=== PATIENT | male | born 1995 | race African-American/Black ===

== ENCOUNTER 2016-06-13 15:42 | Emergency (ER) | payer MEDICARE ==
[~2016-06-13] VITALS: Ht 175.3 cm; Wt 55.0 kg
[~2016-06-13 15:42] MED LIST: INSU3INS6 SUBCUT
[2016-06-13] MEDS ORDERED: BACITRACIN ZINC OINT UDPKT TOP ONE (19:45)
[2016-06-13 19:51] VITALS: BP 133/77
== END 2016-06-13 20:13 | disposition home or self-care (01) ==
LOC: ER 15:43
DX: S60.00XA Contusion of unspecified finger without damage to nail, initial encounter (principal); J45.909 Unspecified asthma, uncomplicated; E11.9 Type 2 diabetes mellitus without complications; F17.200 Nicotine dependence, unspecified, uncomplicated; Z79.4 Long term (current) use of insulin; Z91.041 Radiographic dye allergy status; Z91.012 Allergy to eggs; Z91.010 Allergy to peanuts; Z91.018 Allergy to other foods; W22.8XXA Striking against or struck by other objects, initial encounter; Y93.89 Activity, other specified; Y99.8 Other external cause status; Y92.89 Other specified places as the place of occurrence of the external cause
CPT/HCPCS: 73130; 82962; 99284

== ENCOUNTER 2016-07-09 11:23 | Emergency (ER) | payer MEDICARE ==
[~2016-07-09] VITALS: Ht 177.8 cm; Wt 70.0 kg
[2016-07-09] MEDS ORDERED: MORPHINE SULFATE 4 MG/ML CPJ (NOT FOR IM USE) IV STA (12:28)
[2016-07-09] MEDS ORDERED: SODIUM CHLORIDE 0.9% 1,000 ML IV ONE (12:28)
[2016-07-09] MEDS ORDERED: ONDANSETRON HCL 4MG/2ML VIAL IV STA (12:28)
[2016-07-09 14:24] LABS: BASOPHILS % 0.8 % (0.0-2.0); EOSINOPHILS % 1.2 % (0.0-5.0); HEMATOCRIT. 39.4 % (42.0-52.0); HEMOGLOBIN. 13.4 g/dL (14.0-18.0); LYMPHOCYTES % 32.2 % (20.0-50.0); MEAN CORPUSCULAR HEMOGLOBIN 29.1 pg (28.0-32.0); MEAN CORPUSCULAR VOLUME 85.7 fL (80.0-94.0); MEAN PLATELET VOLUME 6.8 fl (7.4-10.4); MONOCYTES % 4.2 % (2.0-8.0); NEUTROPHILS % 61.6 % (40.0-76.0); PLATELET 351 x1000/uL (130-400); RED BLOOD CELL COUNT 4.59 mill/uL (4.7-6.1)
[2016-07-09 14:31] LABS: CHLORIDE 105 mEq/L (98-107); INDEX HEMOLYSI 1 (1-3); INDEX ICTERIC 1 (1-4); INDEX LIPEMIC 1 (1-3)
[2016-07-09 14:31] LABS: CLARITY URINE CLEAR (CLEAR); COLOR URINE YELLOW (YELLOW); GLUCOSE URINE NEGATIVE (NEGATIVE); KETONES URINE 2+ (NEGATIVE); LEUKOCYTE ESTERASE URINE NEGATIVE (NEGATIVE); NITRITE URINE NEGATIVE (NEGATIVE); OCCULT BLOOD URINE NEGATIVE (NEGATIVE); PH URINE 5.5 (4.5-8.0); PROTEIN URINE TRACE (NEGATIVE)
[2016-07-09 14:41] LABS: ALANINE AMINOTRANSFERASE 26 IU/L (13-61); ALBUMIN 3.2 g/dL (3.4-5.0); ANION GAP 12; CALCIUM 7.9 mg/dL (8.5-10.1); CARBON DIOXIDE 26 mEq/L (21-32); ETHANOL BLOOD < 10 mg/dL; LIPASE 48 IU/L (73-393); UREA NITROGEN BLOOD 21 mg/dL (7-21); eGFR > 60 mL/min (>60)
[2016-07-09 14:45] LABS: *AMPHETAMINES SCREEN URINE NEGATIVE (NEGATIVE); *BARBITURATES SCREEN URINE NEGATIVE (NEGATIVE); *BENZODIAZEPINES SCREEN URINE NEGATIVE (NEGATIVE); *COCAINE SCREEN URINE NEGATIVE (NEGATIVE); CANNABINOID URINE SCREEN PRESUMTIVE POSITIVE (NEGATIVE); ECSTASY MDMA SCREEN URINE NEGATIVE (NEGATIVE); METHADONE URINE SCREEN NEGATIVE (NEGATIVE); OPIATES URINE SCREEN PRESUMTIVE POSITIVE (NEGATIVE); PHENCYCLIDINE URINE SCREEN NEGATIVE (NEGATIVE)
[2016-07-09 14:53] LABS: MUCUS URINE TRACE /lpf (NONE/TRACE); SQUAMOUS EPITHELIAL CELL URINE FEW /lpf (RARE/1+)
[2016-07-09 14:54] LABS: BACTERIA URINE TRACE
[2016-07-09 14:55] LABS: RBC URINE 0-2 /hpf (0-2)
[2016-07-09 16:36] VITALS: BP 115/72
== END 2016-07-09 17:04 | disposition home or self-care (01) ==
LOC: ER 11:23
DX: R11.2 Nausea with vomiting, unspecified (principal); R10.84 Generalized abdominal pain; J45.909 Unspecified asthma, uncomplicated; E11.9 Type 2 diabetes mellitus without complications; Z91.010 Allergy to peanuts; Z91.012 Allergy to eggs; Z91.041 Radiographic dye allergy status; Z79.4 Long term (current) use of insulin
CPT/HCPCS: 36415; 80053; 80305; 81001; 82962; 83690; 85025; 96361; 96374; 96375; 99284; G0482; J2270; J2405; J7030; Z7610

== ENCOUNTER 2016-11-06 05:51 | Emergency (ER) | payer MEDICARE ==
[~2016-11-06] VITALS: Ht 177.8 cm; Wt 66.0 kg
[2016-11-06] MEDS ORDERED: SODIUM CHLORIDE 0.9% 1,000 ML IV ONE (09:19)
[2016-11-06] MEDS ORDERED: ONDANSETRON HCL 4MG/2ML VIAL IV ONE (09:30)
[2016-11-06 09:39] LABS: BASOPHILS % 0.7 % (0.0-2.0); EOSINOPHILS % 0.2 % (0.0-5.0); HEMATOCRIT. 44.6 % (42.0-52.0); HEMOGLOBIN. 15.2 g/dL (14.0-18.0); LYMPHOCYTES % 22.1 % (20.0-50.0); MEAN CORPUSCULAR HEMOGLOBIN 29.2 pg (28.0-32.0); MEAN CORPUSCULAR VOLUME 85.7 fL (80.0-94.0); MONOCYTES % 3.3 % (2.0-8.0); NEUTROPHILS % 73.7 % (40.0-76.0); PLATELET 441 x1000/uL (130-400); RED BLOOD CELL COUNT 5.21 mill/uL (4.7-6.1); RED CELL DISTRIBUTION WIDTH 13.4 % (11.6-14.6)
[2016-11-06 09:50] LABS: CARBON DIOXIDE 24 mEq/L (21-32); CHLORIDE 105 mEq/L (98-107)
[2016-11-06 09:55] LABS: BETA HYDROXYBUTYRATE 2.7 mMol/L (0.0-0.3)
[2016-11-06 11:49] LABS: BG BASE EXCESS -3.5 mmol/L (-2.0-2.0); BG DEOXYHEMOGLOBIN 3.4 % (0.0-5.0); BG FRACTION INSPIRED OXYGEN 21; BG HCO3 ACT 21.7 mmol/L (22.0-26.0); BG METHEMOGLOBIN 0.2 % (0.0-1.5); BG OXYGEN SATURATION 96.6 % (92.0-98.5); BG OXYHEMOGLOBIN 95.4 % (94.0-97.0); BG PH 7.352 (7.350-7.450); BG PO2 94.3 mmHg (75.0-100.0); BG SAMPLE SITE RIGHT RADIAL; BG TOTAL HEMOGLOBIN 16.5 g/dL (12.0-18.0); BG VENT MODE ROOM AIR
[2016-11-06 14:18] VITALS: BP 128/74
== END 2016-11-06 14:25 | disposition home or self-care (01) ==
LOC: ER 07:26
DX: E11.65 Type 2 diabetes mellitus with hyperglycemia (principal); E88.89 Other specified metabolic disorders; Z79.4 Long term (current) use of insulin; K59.00 Constipation, unspecified; J45.909 Unspecified asthma, uncomplicated; F17.210 Nicotine dependence, cigarettes, uncomplicated; Z91.041 Radiographic dye allergy status; Z91.012 Allergy to eggs; Z91.018 Allergy to other foods
CPT/HCPCS: 36415; 36600; 80053; 82010; 82375; 82805; 82962; 85025; 96361; 96374; 99285; J2405; J7030; Z7610